=== PATIENT | female | born 1955 | race Caucasian/White ===

== ENCOUNTER → 2023-03-07 | Outpatient (CLI) | payer MEDICARE, OTHER ==
[~2023-03-07] MED LIST: BARIUM for suspension 96% w/w (Vanilla Silq Medium Density) PO ONE; BARIUM for suspension 98% w/w (Vanilla Silq High Density) PO ONE
--- NOTE | 2023-03-07 12:20 | Diagnostic Imaging Report ---
INDICATION: Duodenal obstruction. Patient ingested effervescent crystals as well as thin and thick barium and imaging of the esophagus, stomach and proximal small bowel was performed. 36 images were obtained. A total of 48 seconds of fluoroscopic time was utilized. Reference air Kerma is 85.9 mGy. Preliminary radiograph of the abdomen is unremarkable. The esophagus has a smooth contour. No mass or stricture is identified. No hiatal hernia or gastroesophageal reflux was demonstrated. The stomach has a normal configuration. There is prompt emptying of contrast into the proximal small bowel. There is an area of persistent luminal narrowing involving the 2nd portion of the duodenum. 3rd and 4th portion are unremarkable. Mucosal fold pattern is unremarkable. IMPRESSION: There is a persistent area of luminal narrowing involving the 2nd portion of the duodenum. A duodenal mass at this location cannot entirely excluded. CT may be useful for further evaluation. Dictated by: Dictated on workstation # [id number]
== END ==
LOC: RAD 09:45
PROVIDERS: ATTEND Surgery
DX: K31.5 Obstruction of duodenum (principal)
CPT/HCPCS: 74246

== ENCOUNTER → 2023-03-14 | Outpatient (CLI) | payer MEDICARE, OTHER ==
[~2023-03-14] MED LIST changes: -BARIUM for suspension 96% w/w (Vanilla Silq Medium Density) PO ONE; -BARIUM for suspension 98% w/w (Vanilla Silq High Density) PO ONE; +DIATRIZOATE MEGLUM/SODIUM 37% 120 ML (GASTROGRAFIN) PO ONE; +HOLD METFORMIN - RECEIVED CONTRAST 20 ML VIAL IV SCH; +IOHEXOL 350 MG/ML 100 ML (OMNIPAQUE 350) VIAL IV ONE; +NS 100 ML (IVPB) BAG IV ONE
--- NOTE | 2023-03-14 09:29 | Diagnostic Imaging Report ---
PROCEDURE: CT chest, abdomen, and pelvis with contrast. TECHNIQUE: Multiple contiguous axial images were obtained through the chest, abdomen, and pelvis after the administration of intravenous contrast. Auto Exposure Controls were utilized during the CT exam to meet ALARA standards for radiation dose reduction. INDICATION: Duodenal obstruction, with abnormal recent endoscopy as well as abnormal upper gastrointestinal. Comparison is made with recent upper gastrointestinal study from 03/07/2023. CT chest: No axillary lymphadenopathy is detected. No mediastinal or hilar lymphadenopathy is identified. No pericardial or pleural fluid is detected. No pulmonary infiltrates, nodules or masses are detected. CT abdomen and pelvis: There is diffuse low-attenuation throughout the liver consistent with hepatic steatosis. No liver mass is identified. The gallbladder is surgically absent. There is no biliary ductal dilatation. The pancreas and spleen are unremarkable. No adrenal mass is identified. Kidneys are unremarkable. No calculi or hydronephrosis is detected. Aorta is nonaneurysmal. There is circumferential wall thickening involving a short segment of the 2nd portion of the duodenum, correlating with the area of narrowing noted on recent upper gastrointestinal. This is just distal to the duodenal bulb. The 3rd portion of the duodenum is widely patent. All other small and large bowel loops are unremarkable. There is no ascites. No fluid collection is seen. The bladder and prostate are unremarkable. No abdominal or pelvic lymphadenopathy is detected. The bony structures are nonacute. IMPRESSION: 1. Unremarkable CT of the chest. 2. Hepatic steatosis. 3. Circumferential wall thickening with significant luminal narrowing involving a short segment of the 2nd portion of the duodenum, correlating with the area of luminal narrowing on recent upper gastrointestinal exam. This may represent a duodenal stricture. Circumferential duodenal mass cannot be entirely excluded and tissue sampling may be indicated. No other significant abnormality in the abdomen or pelvis is identified. Dictated by: Dictated on workstation # [id number]
== END ==
LOC: RAD 06:55
PROVIDERS: ATTEND Surgery
DX: K76.0 Fatty (change of) liver, not elsewhere classified (principal); K31.5 Obstruction of duodenum
CPT/HCPCS: 71260; 74177